=== PATIENT | female | born 1985 | race Caucasian/White ===

== ENCOUNTER → 2020-12-28 | Outpatient (CLI) | payer BC, OTHER ==
[~2020-12-28] MED LIST: BENTYL 20MG TAB20 MG PO; LODINE CAP 300300 MG PO; MACROBID 100 M100 MG PO; ZOFRAN ODT 4 MG4 MG PO
== END ==
LOC: RAD 11:13
DX: M54.5 Low back pain (principal); Z87.442 Personal history of urinary calculi
CPT/HCPCS: 74018